=== PATIENT | female | born 1960 | race Two or more races ===

== ENCOUNTER 2022-09-29 10:47 | Outpatient (CLI) | payer OTHER | END 2022-09-29 10:57 | disposition home or self-care (01) | LOC: LAB 10:47 | DX: U07.1 COVID-19 (principal); Z20.828 Contact with and (suspected) exposure to other viral communicable diseases ==

== ENCOUNTER 2023-06-17 05:28 | Emergency (ER) | payer OTHER ==
[~2023-06-17] VITALS: Ht 165.1 cm; Wt 81.6 kg
[2023-06-17] MEDS ORDERED: GLUMETZA500 MG (05:36)
[2023-06-17] MEDS ORDERED: LIPITOR40 M1 PO (05:37)
[2023-06-17 09:22] LABS: HEMATOCRIT 39.1 % (36.0-45.00); HEMOGLOBIN 13.2 g/dL (12.0-15.00); MEAN CELL VOLUME 83.6 fL (80.00-100.00); MEAN CORPUSCULAR HEMOGLOBIN 28.2 pg (27.00-32.0); MEAN CORPUSCULAR HGB CONC 33.7 g/dl (32.0-36.0); PLATELET COUNT 257 K/uL (150-450); RED BLOOD COUNT 4.68 M/uL (4.00-6.00); RED CELL DISTRIBUTION WIDTH 14.3 % (11.5-14.5)
[2023-06-17 09:33] LABS: CALCIUM 9.6 mg/dL (8.5-10.1); CREATININE SERUM 0.76 mg/dL (0.55-1.02); GFR 77.37; POTASSIUM 3.73 mEq/L (3.5-5.1)
[2023-06-17 10:07] LABS: URINE APPEARANCE Clear; URINE BILIRRUBIN Negative (NEGATIVE); URINE BLOOD Trace; URINE COLOR Yellow; URINE GLUCOSE Negative (NEGATIVE); URINE LEUKOCYTE Trace; URINE NITRATE Negative; URINE PROTEIN Negative (NEGATIVE); URINE UROBILINOGEN 0.2 E.U./dl
[2023-06-17 10:11] LABS: URINE EPITHELIAL CELLS 7.7 uL (0.0-38.8); URINE RBC 12.3 uL (0.0-20.8); URINE WBC 16.8 uL (0.0-23.2)
== END 2023-06-17 11:29 | disposition home or self-care (01) ==
LOC: ER 05:28
DX: F41.8 Other specified anxiety disorders (principal); R42 Dizziness and giddiness; N39.0 Urinary tract infection, site not specified; E11.9 Type 2 diabetes mellitus without complications; Z79.84 Long term (current) use of oral hypoglycemic drugs

== ENCOUNTER 2023-11-19 07:51 | Emergency (ER) | payer OTHER ==
[~2023-11-19] VITALS: Ht 165.1 cm; Wt 83.9 kg
[~2023-11-19 07:51] MED LIST: GLUMETZA500 MG; LIPITOR40 M1 PO
[2023-11-19] MEDS ORDERED: LIPITOR20 MG PO (08:09)
[2023-11-19] MEDS ORDERED: FAMOTIDINE/PF 20 MG in 0.9 % SODIUM CHLORIDE 8 ML IV PUSH STA (08:30)
[2023-11-19] MEDS ORDERED: FAMOtidine 200mg/20ml VIAL ONE (08:52)
[2023-11-19 09:39] LABS: HEMATOCRIT 37.1 % (36.0-45.00); HEMOGLOBIN 12.6 g/dL (12.0-15.00); MEAN CELL VOLUME 81.5 fL (80.00-100.00); MEAN CORPUSCULAR HEMOGLOBIN 27.7 pg (27.00-32.0); PLATELET COUNT 212 K/uL (150-450); RED BLOOD COUNT 4.55 M/uL (4.00-6.00); RED CELL DISTRIBUTION WIDTH 15.1 % (11.5-14.5)
[2023-11-19 10:52] LABS: CALCIUM 9.3 mg/dL (8.5-10.1); CREATININE SERUM 0.85 mg/dL (0.55-1.02); GFR 67.77; POTASSIUM 3.43 mEq/L (3.5-5.1)
== END 2023-11-19 11:54 | disposition home or self-care (01) ==
LOC: ER 07:52
PROVIDERS: Emergency Medicine
DX: R10.9 Unspecified abdominal pain (principal); I10 Essential (primary) hypertension